=== PATIENT | male | born 1985 | race Two or more races ===

== ENCOUNTER 2019-06-30 13:36 | Inpatient (IN) | payer OTHER ==
[~2019-06-30] VITALS: Ht 167.6 cm; Wt 75.1 kg
[2019-06-30] MEDS ORDERED: SODIUM CHLORIDE 0.9% 1,000 ML IVB ONE (13:41)
[2019-06-30] MEDS ORDERED: MORPHINE SULFATE 4 MG/ML SYR/VIAL IV ONE (13:45)
[2019-06-30] MEDS ORDERED: ONDANSETRON HCL 4 MG/2 ML VIAL IV ONE (13:45)
[2019-06-30 14:09] LABS: Basophils # (auto) 0 uL; Basophils % (auto) 0.3 % (0.0-2.0); Eosinophils # (auto) 0 uL; Eosinophils % (auto) 0.4 % (0.0-7.0); Hematocrit 47.9 % (41.0-53.0); Lymphocytes # (auto) 1.8 uL; Lymphocytes % (auto) 18.3 % (10.0-50.0); Mean Corpuscular Hemoglobin 30.6 pg (28.0-32.0); Mean Corpuscular Hgb Conc. 33.4 g/dL (32.0-36.0); Mean Corpuscular Volume 91.9 fL (80.0-100.0); Monocytes # (auto) 0.5 uL; Neutrophils # (auto) 7.6 uL; Nucleated Red Blood Cells % 0.1 %; Platelet Count (auto) 188 10^3/uL (140-450); Red Blood Cells 5.21 10^6/uL (4.5-5.90); Red Cell Distribution Width 13.3 % (11.8-14.3); White Blood Cell 9.9 10^3/uL (4.4-10.8)
[2019-06-30 14:23] LABS: Albumin 4.1 g/dL (3.4-5.0); BUN/Creatinine Ratio 17.2; Calcium 8.6 mg/dL (8.5-10.1)
[2019-06-30 14:26] LABS: Bilirubin, Total 0.5 mg/dL (0.2-1.0)
[2019-06-30 15:36] LABS: Urine Amorphous Crystal FEW /hpf (None Seen); Urine Bacteria NONE SEEN /hpf (None Seen); Urine Blood Negative /uL (Negative); Urine Mucus FEW (None Seen); Urine Specific Gravity 1.017 (1.001-1.035); Urine WBC 1 /hpf (0 - 3)
[2019-06-30 15:56] LABS: Alcohol, Urine < 3.0 mg/dL (0-5); Amphetamine Screen, Urine NEGATIVE (NEGATIVE); Barbiturate Scree,Urine NEGATIVE (NEGATIVE); Benzodiazephine Screen, Urine NEGATIVE (NEGATIVE); Cannabinoid Screen, Urine NEGATIVE (NEGATIVE); Cocaine Screen, Urine NEGATIVE (NEGATIVE); Opiate Scree,Urine NEGATIVE (NEGATIVE); Phencyclidine Screen, Urine NEGATIVE (NEGATIVE)
[2019-06-30] MEDS ORDERED: NITROGLYCERIN 0.4 MG SL TAB SL PRN (20:30)
[2019-06-30] MEDS ORDERED: MORPHINE SULF INJ 2 MG/ML SYRINGE 1ML IV PRN (20:30)
[2019-06-30] MEDS ORDERED: D5W/SOD CHL 0.45% 1,000 ML IV ONE (20:45)
[2019-06-30] MEDS: HYDROcodone-ACET 10/325MG TAB PO PRN (21:05)
[2019-06-30 21:30] VITALS: BP 119/80
--- NOTE | 2019-06-30 22:57 | NUR ---
MS admit from ER EUSEBIO LEE admitted to tele/MS after SBAR received. Patient oriented to JEREMIAH TEJEDA RN primary RN, unit, room, bed, and unit policies regarding patient care and visiting hours. Patient weighed by bedscale and encouraged to call if they need something. All questions and concerns addressed, patient verbalized understanding. Note:
[2019-07-01 05:25] VITALS: BP 103/61
[2019-07-01] MEDS: HYDROcodone-ACET 10/325MG TAB PO PRN ×3 (06:06→19:53)
[2019-07-01] MEDS: ONDANSETRON HCL 4 MG/2 ML VIAL IV PRN ×3 (06:57→19:52)
[2019-07-01 09:00] VITALS: BP 123/74
[2019-07-01 13:00] VITALS: BP 117/67
[2019-07-01 17:00] VITALS: BP 121/60
--- NOTE | 2019-07-01 20:12 | NUR ---
Opening Shift Note Assumed care of patient, awake and alert. No S/S of distress/SOB. Patient c/o RUQ abdominal pain with nausea, given norco and zofrn as ordered. Instructed on POC and to call for assist PRN, will continue to monitor for changes Q1hr and PRN.
[2019-07-01] MEDS: PANTOPRAZOLE 40 MG/10 ML VIAL INJ IV SCH (20:22)
[2019-07-01 21:37] VITALS: BP 119/71
[2019-07-02] MEDS: HYDROcodone-ACET 10/325MG TAB PO PRN ×3 (04:19→17:24)
[2019-07-02 04:42] VITALS: BP 122/63
--- NOTE | 2019-07-02 07:30 | NUR ---
Opening Shift Note Assumed care of patient, awake and alert. No S/S of distress/SOB or pain. Instructed on POC and to call for assist PRN, will continue to monitor for changes Q1hr and PRN.\
[2019-07-02 08:39] VITALS: BP 106/50
[2019-07-02] MEDS: PANTOPRAZOLE 40 MG/10 ML VIAL INJ IV SCH ×2 (11:00→21:53)
[2019-07-02] MEDS: D5W/SOD CHLO 0.9% 1,000 ML IV SCH ×2 (11:27→15:48)
--- NOTE | 2019-07-02 12:00 | NUR ---
Rounds Patient awake and alert. No S/S of distress/SOB or pain. Will continue to monitor changes q1hr and PRN.
[2019-07-02 13:00] VITALS: BP 109/56
--- NOTE | 2019-07-02 16:00 | NUR ---
Rounds Patient awake and alert. No S/S of distress/SOB or pain. Will continue to monitor changes q1hr and PRN.
[2019-07-02 16:09] LABS: Basophils # (auto) 0 uL; Basophils % (auto) 0.5 % (0.0-2.0); Eosinophils # (auto) 0.2 uL; Eosinophils % (auto) 2.2 % (0.0-7.0); Hematocrit 44.9 % (41.0-53.0); Hemoglobin 14.8 g/dL (13.5-17.5); Lymphocytes # (auto) 1.1 uL; Mean Corpuscular Hemoglobin 30.7 pg (28.0-32.0); Mean Corpuscular Hgb Conc. 33.1 g/dL (32.0-36.0); Mean Corpuscular Volume 92.9 fL (80.0-100.0); Monocytes # (auto) 0.6 uL; Monocytes % (auto) 7.5 % (0.0-12.0); Neutrophils # (auto) 5.6 uL; Neutrophils % (auto) 74.8 % (37.0-80.0); Nucleated Red Blood Cells % 0.1 %; Platelet Count (auto) 173 10^3/uL (140-450); Red Blood Cells 4.83 10^6/uL (4.5-5.90); Red Cell Distribution Width 13.2 % (11.8-14.3); White Blood Cell 7.4 10^3/uL (4.4-10.8)
[2019-07-02 16:15] LABS: Albumin 3.4 g/dL (3.4-5.0); BUN/Creatinine Ratio 8.5; Calcium 8.5 mg/dL (8.5-10.1); Potassium 4.4 mmol/L (3.5-5.1)
[2019-07-02 16:17] LABS: Bilirubin, Total 0.6 mg/dL (0.2-1.0)
[2019-07-02 16:46] VITALS: BP 109/57
--- NOTE | 2019-07-02 18:22 | NUR ---
Patient awake and alert. No S/S of distress/SOB or pain. Will continue to monitor changes q1hr and PRN. GUARDS X 2 AT BEDSIDE.
--- NOTE | 2019-07-02 20:00 | NUR ---
RECEIVE IN BEDWATCHING TV WITH 2 GUARDS AT BEDSIDE LT FOREARM SHACKLED TO BEDSIDE FOREARM WARM TO TOUCH
[2019-07-02 22:00] VITALS: BP 102/52
[2019-07-03] MEDS: D5W/SOD CHLO 0.9% 1,000 ML IV SCH ×3 (00:10→11:10)
[2019-07-03 05:00] VITALS: BP 111/66
[2019-07-03] MEDS: HYDROcodone-ACET 10/325MG TAB PO PRN ×2 (06:01→11:08)
[2019-07-03 09:00] VITALS: BP 101/59
[2019-07-03] MEDS: PANTOPRAZOLE 40 MG/10 ML VIAL INJ IV SCH (09:53)
[2019-07-03] MEDS ORDERED: PANT40TA2 PO (10:07)
[2019-07-03 13:00] VITALS: BP 122/73
--- NOTE | 2019-07-03 13:59 | NUR ---
DISCHARGE Discharge instructions given as ordered. Encourage to follow up with PMD as instructed. All questions and concerns addressed. Patient verbalized understanding. Medication reconciliation form completed and copy given to patient. HIV removed with catheter intact, pressure dressing applied. PT AWAITING FOR TRANSPORTATION. GUARDS X 2 AT BEDSIDE.
== END 2019-07-03 14:40 | DRG 392 ==
LOC: EDBD 13:36 → EEVIPCON 13:36 → ER 13:36 → OVERFLOW 13:37 → EAST 21:15
PROVIDERS: ADMIT Internal Medicine; ATTEND Internal Medicine
DX: K52.9 Noninfective gastroenteritis and colitis, unspecified (principal); E86.0 Dehydration; F17.210 Nicotine dependence, cigarettes, uncomplicated; F12.90 Cannabis use, unspecified, uncomplicated; Z90.49 Acquired absence of other specified parts of digestive tract; Z83.3 Family history of diabetes mellitus; Z72.89 Other problems related to lifestyle
CPT/HCPCS: 36415; 74176; 80053; 80307; 81001; 83690; 85025; 94761; 96361; 96374; C9113; G0378; J2405; J7042